=== PATIENT | male | born 1975 | race Caucasian/White ===

== ENCOUNTER 2017-12-21 20:42 | Emergency (ER) | payer SELFPAY ==
[~2017-12-21] VITALS: Ht 188 cm; Wt 88.0 kg
[~2017-12-21 20:42] MED LIST: BUPR150T3 PO; DEPA500T3 PO; IBUP800T23 PO; MMW SSP; PENI500T PO; RISP4TAB41 PO
[2017-12-21 21:25] VITALS: BP 104/70; PULSE 80; RESP 18; TEMP 98.2; O2SAT 99
[2017-12-21 21:57] VITALS: BP 126/80; PULSE 72; RESP 18; O2SAT 98
[2017-12-21] MEDS ORDERED: IBUP-232 PO (22:23)
[2017-12-21] MEDS ORDERED: CORTISPORIN OTIC SUS EACH EAR (22:23)
[2017-12-21] MEDS ORDERED: BACT800T5 PO (22:23)
--- NOTE | 2017-12-21 22:24 | PD ---
HPI Chief Complaint: Skin Problem Time Seen by Provider: 22:16 Travel History International Travel<30 days: No Contact w/Intl Traveler<30days: No Traveled to known affect area: No History of Present Illness HPI 42-year-old male complains of left ear pain. Patient states that the pain started several days ago. Patient states that he has some swelling on the left ear canal. Patient states that he probably got bitten by an insect or spider. Patient denies any fever chills. Patient denies any sore throat coughing congestion. Patient states the pain is sharp burning pain localized the left ear canal. Patient denies any pain radiation. On a scale of 1-10 the pain is an 8. PFSH Past Medical History Bipolar Disorder: Yes Diminished Hearing: No Psychiatric: Yes Tetanus Vaccination: Unknown Influenza Vaccination: No Past Surgical History Surgical History: No Previous Surgery Social History Alcohol Use: No Tobacco Use: Yes (1PPD) Substance Use: Yes (Extensive Hx Drug Abuse) Allergies-Medications (Allergen,Severity, Reaction): Coded Allergies: No Known Allergies (Unverified , 08/28/15) Reported Meds & Prescriptions Reported Meds & Active Scripts Active Magic Mouthwash-Diphenhy Formula (Lidocaine/Diphenhydr/Alum/Mg/Simeth) Ml 5-10 Ml SSP 5 TIMES A DAY PRN MAGIC MOUTHWASH CONTAINS 1/3 VISCOUS LIDOCAINE, 1/3 MAALOX, AND 1/3 BENADRYL. Ibuprofen 800 Mg Tab 800 Mg PO Q6HR PRN Pen Vk (Penicillin V Potassium) 500 Mg Tab 500 Mg PO QID Reported Bupropion Hcl Xl (Bupropion HCl) 150 Mg Tab 150 Mg PO DAILY Risperdal (Risperidone) 4 Mg Tab 4 Mg PO HS Depakote (Divalproex Sodium) 500 Mg Kendall 1,000 Mg PO HS Depakote (Divalproex Sodium) 500 Mg Kendall 500 Mg PO DAILY Review of Systems General / Constitutional: No: Fever Eyes: No: Visual changes HENT: Positive: Earache, No: Headaches Cardiovascular: No: Chest Pain or Discomfort Respiratory: No: Shortness of Breath Gastrointestinal: No: Abdominal Pain Genitourinary: No: Dysuria Musculoskeletal: No: Pain Skin: No Rash Neurologic: No: Weakness Psychiatric: No: Depression Endocrine: No: Polydipsia Hematologic/Lymphatic: No: Easy Bruising Physical Exam Narrative GENERAL: Well-nourished, well-developed patient. SKIN: Focused skin assessment warm/dry. HEAD: Normocephalic. EYES: No scleral icterus. No injection or drainage. Patient has an area of redness swelling tenderness on the left ear canal. No discharge noted. No exudate. Left TM is clear. No evidence of foreign body in the left ear canal. NECK: Supple, trachea midline. No JVD or lymphadenopathy. CARDIOVASCULAR: Regular rate and rhythm without murmurs, gallops, or rubs. RESPIRATORY: Breath sounds equal bilaterally. No accessory muscle use. GASTROINTESTINAL: Abdomen soft, non-tender, nondistended. MUSCULOSKELETAL: No cyanosis, or edema. BACK: Nontender without obvious deformity. No CVA tenderness. Data Data Last Documented VS Vital Signs Date Time Temp Pulse Resp B/P (MAP) Pulse Ox O2 Delivery O2 Flow Rate FiO2 12/21/17 21:57 72 18 126/80 (95) 98 Room Air 12/21/17 21:25 98.2 MDM Medical Decision Making Medical Screen Exam Complete: Yes Emergency Medical Condition: Yes Differential Diagnosis Differential diagnosis includes otitis externa, cellulitis. Narrative Course 42-year-old male with left ear canal redness swelling tenderness. Bactrim DS 1 tablet p.o. given. Ibuprofen 600 mg p.o. given. Diagnosis Primary Impression: Left otitis externa Qualified Codes: H60.502 - Unspecified acute noninfective otitis externa, left ear Patient Instructions: General Instructions Med/Other Pt SpecificInfo: Prescription(s) given Scripts [Cortisporin Otic Donna] No Conflict Check 4 DROP EACH EAR TID, #1 Prov: Jarrod Goff MD 12/21/17 Ibuprofen (Ibuprofen) 600 Mg Tab 600 MG PO TID for Pain, #30 TAB 0 Refills Prov: Jarrod Goff MD 12/21/17 Sulfamethoxazole-Trimethoprim (Bactrim DS) 800-160 Mg Tab 1 TAB PO BID for Infection, #20 TAB 0 Refills Prov: Jarrod Goff MD 12/21/17 Disposition: 01 DISCHARGE HOME Condition: Stable Jarrod Goff MD Dec 21, 2017 22:24
[2017-12-21] MEDS ORDERED: SULFAMETHOXAZOLE-TRIMETHOPRIM DS 800-160 MG TAB PO ONE (22:30)
[2017-12-21] MEDS ORDERED: IBUPROFEN 600 MG TAB PO ONE (22:30)
== END 2017-12-21 22:37 | disposition home or self-care (01) ==
LOC: NEPD 20:42
DX: H60.502 Unspecified acute noninfective otitis externa, left ear (principal); F31.9 Bipolar disorder, unspecified; F17.200 Nicotine dependence, unspecified, uncomplicated
CPT/HCPCS: 99283

== ENCOUNTER 2018-01-19 13:42 | Emergency (ER) | payer SELFPAY ==
[~2018-01-19] VITALS: Ht 188 cm; Wt 90.5 kg
[~2018-01-19 13:42] MED LIST changes: +BACT800T5 PO; +CORTISPORIN OTIC SUS EACH EAR; +IBUP-232 PO
[2018-01-19 14:30] VITALS: BP 107/66; PULSE 84; RESP 16; TEMP 97.7; O2SAT 100
[2018-01-19] MEDS ORDERED: LURA20TA PO (15:01)
[2018-01-19] MEDS ORDERED: FAMO1TAB73 PO (15:04)
[2018-01-19] MEDS ORDERED: MEDR4PAK PO (15:04)
[2018-01-19] MEDS ORDERED: CLAR10CA3 PO (15:04)
--- NOTE | 2018-01-19 15:04 | PD ---
HPI Chief Complaint: Allergic/Adverse Reaction Time Seen by Provider: 14:57 Travel History International Travel<30 days: No Contact w/Intl Traveler<30days: No Traveled to known affect area: No History of Present Illness HPI Patient comes in complaining of generalized rash, is pruritic, and has been going on for the past 2 days. Currently denies any shortness of breath, throat swelling sensation, or difficulty swallowing. Patient denies any alleviating or aggravating factors. Patient denies any use of any different soap or detergent or lotion. 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 Patient denies any associated factors such as fever, cough, chest pain, sore throat, runny nose, nausea, vomiting, diarrhea, abdominal pain, flank pain, or back pain. No known drug allergy Patient denied any past medical or surgical history. However upon chart review the patient is noted to have a history of bipolar and to have been placed on Depakote previously. Patient did not volunteer any of this information PFSH Past Medical History Bipolar Disorder: Yes Diminished Hearing: No Psychiatric: Yes Social History Alcohol Use: No Tobacco Use: Yes (1PPD) Substance Use: Yes (Extensive Hx Drug Abuse) Allergies-Medications (Allergen,Severity, Reaction): Coded Allergies: No Known Allergies (Unverified Adverse Reaction, Unknown, 01/19/18) Reported Meds & Prescriptions Reported Meds & Active Scripts Active Epipen 2-Prince Inj (Epinephrine) 0.3 Mg/0.3 Ml Pfpen 0.3 Mg IM ONCE PRN Pepcid (Famotidine) 40 Mg Tab 40 Mg PO DAILY 10 Days Claritin (Loratadine) 10 Mg Cap 10 Mg PO DAILY 10 Days Medrol Dosepak (Methylprednisolone) 4 Mg Dspk 4 Mg PO DIRECTED Per Pharmacist direction Reported Latuda (Lurasidone) 20 Mg Tab 20 Mg PO DAILY Review of Systems General / Constitutional: No: Fever Eyes: No: Visual changes HENT: No: Headaches Cardiovascular: No: Chest Pain or Discomfort Respiratory: No: Shortness of Breath Gastrointestinal: No: Abdominal Pain Genitourinary: No: Dysuria Musculoskeletal: No: Pain Skin: Positive Rash, Positive Itching Neurologic: No: Weakness Psychiatric: No: Depression Endocrine: No: Polydipsia Hematologic/Lymphatic: No: Easy Bruising Physical Exam Narrative GENERAL: SKIN: Warm and dry. Generalized rash consistent with hives HEAD: Atraumatic. Normocephalic. EYES: Pupils equal and round. No scleral icterus. No injection or drainage. ENT: No nasal bleeding or discharge. Mucous membranes pink and moist. Negative lip/tongue/uvulaR edema NECK: Trachea midline. No JVD. Negative stridor CARDIOVASCULAR: Regular rate and rhythm. RESPIRATORY: No accessory muscle use. Clear to auscultation. Breath sounds equal bilaterally. Negative wheezing GASTROINTESTINAL: Abdomen soft, non-tender, nondistended. MUSCULOSKELETAL: Extremities without clubbing, cyanosis, or edema. No obvious deformities. NEUROLOGICAL: Awake and alert. No obvious cranial nerve deficits. Motor grossly within normal limits. Five out of 5 muscle strength in the arms and legs. Normal speech. PSYCHIATRIC: Appropriate mood and affect; insight and judgment normal. Data Data Last Documented VS Vital Signs Date Time Temp Pulse Resp B/P (MAP) Pulse Ox O2 Delivery O2 Flow Rate FiO2 01/19/18 15:29 86 115/78 01/19/18 14:30 97.7 16 100 Orders Orders Prednisone (Deltasone) (01/19/18 15:15) Epinephrine (1:1000) Inj (Adrenalin (1:1 (01/19/18 15:15) Diphenhydramine (Benadryl) (01/19/18 15:15) Famotidine (Pepcid) (01/19/18 15:15) Ed Discharge Order (01/19/18 16:33) Ibuprofen (Motrin) (01/19/18 16:45) MDM Medical Decision Making Medical Screen Exam Complete: Yes Emergency Medical Condition: Yes Medical Record Reviewed: Yes Differential Diagnosis Hives versus angioedema versus allergic reaction Narrative Course Clinically the patient has a generalized allergic reaction, without any evidence of angioedema at present time. The patient also does not have any evidence of respiratory distress Patient lacks any evidence of stridor, wheezing, uvular edema, or any evidence of hypoxemia on pulse ox with excellent pleth wave on room air which radiates between 98 and 100 without any difficulty. Diagnosis Primary Impression: Generalized allergic reaction Patient Instructions: General Allergic Reaction (ED), General Instructions Scripts Epinephrine Inj (Epipen 2-Prince Inj) 0.3 Mg/0.3 Ml Pfpen 0.3 MG IM ONCE Y for ALLERGIC REACTION, #1 PACK 0 Refills Prov: Lightburn,Josh Diego MD 01/19/18 Famotidine (Pepcid) 40 Mg Tab 40 MG PO DAILY for 10 Days, #10 TAB 0 Refills Prov: Josh Parson MD 01/19/18 Loratadine (Claritin) 10 Mg Cap 10 MG PO DAILY for Allergy Management for 10 Days, #10 CAP 0 Refills Prov: Josh Parson MD 01/19/18 Methylprednisolone Dosepak (Medrol Dosepak) 4 Mg Dspk 4 MG PO DIRECTED, #1 DSPK 0 Refills Per Pharmacist direction Prov: Josh Parson MD 01/19/18 Disposition: 01 DISCHARGE HOME Condition: Stable Josh Parson MD January 19, 2018 15:04
[2018-01-19] MEDS ORDERED: EPIP0.3I IM (15:05)
[2018-01-19] MEDS ORDERED: predniSONE 20 MG TAB PO ONE (15:15)
[2018-01-19] MEDS ORDERED: FAMOTIDINE 20 MG TAB PO ONE (15:15)
[2018-01-19] MEDS ORDERED: diphenhydrAMINE HCL 50 MG CAP PO ONE (15:15)
[2018-01-19] MEDS ORDERED: EPINEPHrine HCL (1:1000) 1 MG/ML VIAL IM ONE (15:15)
[2018-01-19 15:29] VITALS: BP 115/78; PULSE 86
[2018-01-19] MEDS ORDERED: IBUPROFEN 600 MG TAB PO ONE (16:45)
== END 2018-01-19 17:07 | disposition home or self-care (01) ==
LOC: NEPD 13:42
DX: T78.40XA Allergy, unspecified, initial encounter (principal); F17.200 Nicotine dependence, unspecified, uncomplicated; F31.9 Bipolar disorder, unspecified
CPT/HCPCS: 96372; 99283; J0171; J7512; Q0163